=== PATIENT | male | born 1955 | race African-American/Black ===

== ENCOUNTER 2019-09-29 10:17 | Outpatient (CLI) | payer OTHER, BC ==
--- NOTE | 2019-09-29 12:51 | RAD ---
RIGHT HAND 3 VIEWS: Date: 09/29/2019 HISTORY: Pain. COMPARISON: None. FINDINGS: No acute fracture or malalignment. 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 Mild degenerative disease of the second, third, and fourth metacarpophalangeal joints. No erosions or periostitis. Mild degenerative disease of distal radioulnar joint. IMPRESSION: Mild degenerative changes. No acute osseous abnormality. No evidence for inflammatory arthropathy. POS: [facility]
--- NOTE | 2019-09-29 13:01 | RAD ---
LEFT HAND 3 VIEWS: Date: 09/29/2019 HISTORY: Pain. COMPARISON: None. FINDINGS: No fracture. No malalignment. Mild degenerative disease distal radioulnar joint. There is mild degenerative changes to the thumb carpal and metacarpal joints, as well as the second, third, and fourth metacarpophalangeal joints. No erosions. No periostitis. IMPRESSION: Mild degenerative changes. No acute osseous abnormality. No evidence for inflammatory arthropathy. POS: [facility]
== END 2019-09-29 10:18 | disposition home or self-care (01) ==
LOC: SCSRAD 10:17
PROVIDERS: ATTEND Family Medicine
DX: M79.641 Pain in right hand (principal); M79.642 Pain in left hand; M19.042 Primary osteoarthritis, left hand; M19.041 Primary osteoarthritis, right hand